=== PATIENT | male | born 1975 | race Caucasian/White ===

== ENCOUNTER 2023-10-18 01:12 | Emergency (ER) | payer OTHER, SELFPAY ==
[2023-10-18 01:22] VITALS: BP 134/80
[2023-10-18 03:00] VITALS: BMI 24.8
[2023-10-18 03:06] VITALS: BP 137/92
--- NOTE | 2023-10-18 03:09 | ED.GENMED ---
History of Present Illness
General
Chief Complaint: Flank Pain
Source: patient
Exam Limitations: none
Time Seen by Provider: 10/18/23 03:01
Nursing documentation reviewed up to this point in time: agreed with
Travel History
Have you had any contact with someone who has COVID-19?: No
Do you have any symptoms of coronavirus? Fever > 100 degrees, chills, cough, shortness of breath, sore throat, loss of taste or smell, muscle aches, or headache?: No
History of Present Illness
History of Present Illness:
Pleasant 47-year-old male who presents with left flank pain. This has been going on for the last few days. Was seen at urgent care and started on doxycycline. When cultures came back urgent care called him and switch him to nitrofurantoin. He
states that this pain is similar to previous kidney stone. He denies any current flank pain. Reports no fever, chills, nausea or vomiting. Patient was also taking Pyridium which made his urine orange but did help with the pain.
Phy Exam
General Physical Exam
General Presentation: moderate distress and mild distress
General age: appears stated age
General Skin: warm and dry
General Habitus: normal
General Mental: alert
General Hydration: appears well hydrated
ENT Exam
ENT Exam: EOMI, pharynx normal, neck supple and normocephalic
Eye Exam
Eye Exam: PERRL, cornea clear and conjunctiva normal
Cardiovascular Exam
Cardiovascular Exam: regular rate/rhythm, no edema, no murmur and normal peripheral pulses
Pulmonary Exam
Pulmonary Exam: lungs clear, no respiratory distress, no rales, no crackles, no rhonchi, no stridor, no wheezing and no cough
Gastrointestinal Exam
Gastrointestinal Exam: normal bowel sounds, non tender, soft, no organomegaly, no pulsatile mass and non distended
Neurological Exam
Neurological Exam: alert, oriented x3, no motor deficits and speech normal
Musculoskeletal Exam
Musculoskeletal Exam: full ROM and no edema
Skin Exam
Skin Exam: normal color, warm/dry, no rash and no petechia
Psychiatric Exam
Psychiatric Exam: normal mood/affect
Course
Orders/Labs/Results
Orders:
Orders
10/18/23 02:59
CMP [Comprehensive Metabolic Panel] Urgent
Complete Blood Count/With Diff Urgent
Urinalysis Reflex To Culture Urgent
Date Specimen was Collected: 10/18/23
Time Specimen was Collected: 02:52
Urine Microscopic Reflex Cult Urgent
Urine Culture Urgent
EMELIA Source: U
Specimen Description:
Date Specimen was Collected: 10/18/23
Time Specimen was Collected: 02:52
10/18/23 03:02
CT Abd/pel Without Iv Or Oral Urgent
Comment:
Reason For Exam: left flank pain
10/18/23 03:08
Morphine Sulfate 4 mg IV NOW STA
Ondansetron Injectable [Zofran] 4 mg IV NOW STA
10/18/23 05:00
0.9% Sodium Chloride 1000 ml [Nss] 1,000 ml IV BOLUS
Fosfomycin [Monurol] 3 gm PO ONCE ONE
Ketorolac [Toradol] 30 mg IV NOW STA
10/18/23 05:07
Tamsulosin [Flomax] 0.4 mg PO NOW STA
Abnormal Lab Results
10/18/23
02:59
MCH 31.7 H pg
(27.0-31.0)
Absolute Lymphs (auto) 1.0 L 10^3/uL
(1.2-3.4)
Absolute Monos (auto) 0.8 H 10^3/uL
(0.1-0.6)
Lymphocytes % 16.7 L %
(20.5-51.1)
Monocytes % 13.5 H %
(1.7-9.3)
Glucose 126 H mg/dl
(70-99)
Urine Ketones 2+ A
(Negative)
Ur Occult Blood Reflex 1+ A
(Negative)
Urine Nitrite (Reflex) Positive A
(Negative)
Urine Bilirubin 3+ A
(Negative)
Urine Urobilinogen 3+ A
(Neg - 1+)
Urine RBC 7-10 A /HPF
(0-2)
Urine Bacteria (Reflex) Few A
(Negative)
Urine Albumin (Reflex) 1+ A
(Neg - Trace)
10/18/23 02:59
10/18/23 02:59
Vital Signs
Initial and Last Documented VS:
Initial Vital Signs
Temp Pulse Resp BP Pulse Ox
97.4 F 72 24 134/80 98
10/18/23 01:22 10/18/23 01:22 10/18/23 01:22 10/18/23 01:22 10/18/23 01:22
Last Documented Vital Signs
Temp Pulse Resp BP Pulse Ox
98.8 F 69 16 137/92 95
10/18/23 03:06 10/18/23 03:06 10/18/23 03:06 10/18/23 03:06 10/18/23 03:06
*Critical Care Note
Total Time (30-74mins, 75-104mins- exclusive of procedures): Not Applicable
Update Note
Update Note:
CT ABDOMEN/PELVIS WITHOUT CONTRAST
IMPRESSION:
1. 5 mm stone at the left UVJ resulting in mild left hydroureteronephrosis
2. No bowel obstruction. Normal gallbladder and appendix.
Incidentals:
-Moderate stool burden
- No hepatic or pancreatic mass.
- No abdominal aortic aneurysm.
- No acute osseous abnormality.
- No acute abnormality within the visualized lungs.
- No acute abnormality within the visualized soft tissues.
ED Attending Note
-
Portions of this chart may have been created with voice recognition software.� Occasional wrong word or��sound alike� substitutions may have occurred due to the inherent limitations of voice recognition software.
Discharge Plan
Departure
Patient Disposition: Home (Routine Discharge)
Date of Disposition: 10/18/23
Time of Disposition: 06:05
Patient with high blood pressure during this ER visit?: Yes
Condition: Good
Discharge Problem:
Kidney stone on left side
Instructions: Kidney Stones (DC), How to Strain Your Urine, BLOOD PRESSURE, Narcotic Pain Medication
Prescriptions:
New
tamsulosin [Flomax] 0.4 mg capsule
0.4 mg PO DAILY Qty: 7 0RF
oxycodone-acetaminophen [Percocet] 5-325 mg tablet
1 tab PO Q6HPRN PRN (Reason: pain) Qty: 7 0RF
diclofenac sodium 75 mg tablet,delayed release (DR/EC)
75 mg PO BID Qty: 10 0RF
Referrals:
[facility] [Outside]
Suman Carpenter MD [Active] - Call in 1-3 days for appt
NONE,* [Family Provider] -
Activity Restrictions/Additional Instructions:
Your prescriptions were sent to the pharmacy you specified
It was a pleasure meeting you and taking part in your care. We hope for your continued healing and wellness.
Please read discharge instructions in their entirety. However, they are for general education and may not describe your exact diagnosis at discharge. Information on your ER visit and medical conditions were discussed with you along with appropriate
follow up information...
If indicated, please take your medications as instructed and indicated on discharge paperwork.
Please schedule a follow up appointment as directed. Call to schedule an appointment
Please return to the emergency department with ANY change in, persisting, or worsening of symptoms. If any of your symptoms do not improve, or persist, or become more severe within 6-12 hours, please return to the emergency department for further
care.
Please return to the emergency department if you develop a headache, neck pain/stiffness, fever greater than 100.4F, chest pain, shortness of breath, persistent nausea, vomiting, slurred speech, difficulty walking, numbness/tingling, weakness, signs
of infection or any other symptoms that are worrisome to you.
If you have any questions or concerns please do not hesitate to call the Hospital at or E-mail me directly at [email or web address]
Interventions
Interventions:
*Risk Screen - Suicide Last Done: 10/18/23 01:22
*General Assessment Last Done: 10/18/23 03:00
*Neglect/Abuse Screening Last Done: 10/18/23 01:22
ED- Fall Risk Assessment Last Done: 10/18/23 03:00
*ED COVID-19 Vaccine History Last Done: 10/18/23 06:58
*Nursing Disposition Last Done: 10/18/23 06:58
HM-Auibds-Ngkjpztycc Assessment Last Done: 10/18/23 03:00
ED-Male Genitourinary Assessment Last Done: 10/18/23 03:00
Discharge Date and Time
Discharge Date/Time: 10/18/23 06:59
[2023-10-18 03:14] LABS: % Basophils 0.6 % (0-2); % Eosinophils 0.3 % (0-6); % Immature Granulocytes 0.3 % (0-0.5); % Lymphocytes 16.7 % (20.5-51.1); % Monocytes 13.5 % (1.7-9.3); % Neutrophils 68.6 % (42.2-75.2); Absolute Monocytes 0.8 10^3/uL (0.1-0.6); Absolute Neutrophils 4.3 10^3/uL (1.4-6.5); Hemoglobin 15.2 g/dL (13.0-18.0); Mean Corp Hgb Conc. 35.3 g/dL (33.0-37.0); Mean Corpuscular Hgb 31.7 pg (27.0-31.0); Mean Corpuscular Volume 89.8 fL (80.0-94.0); Mean Platelet Volume 9.4 fL (7.4-10.4); Nucleated Red Blood Cells % 0 % (-); Platelet Count 214 10^3/uL (130-400); Red Blood Cell Count 4.79 10^6/uL (4.70-6.10); Red Cell Dist. Width 12.3 % (11.5-14.5); White Blood Cell Count 6.2 10^3/uL (4.8-10.8)
[2023-10-18 03:16] LABS: Urine Albumin 1+ (Neg - Trace); Urine Bilirubin 3+ (Negative); Urine Character Clear (Clear); Urine Glucose Negative (Negative); Urine Ketone 2+ (Negative); Urine Leukocyte Negative (Negative); Urine Nitrite Positive (Negative); Urine Occult Blood 1+ (Negative); Urine Specific Gravity 1.025 (<1.030); Urine Urobilinogen 3+ (Neg - 1+)
[2023-10-18 03:20] LABS: Urine Color Orange
[2023-10-18] MEDS: ZOFRAN 4 MG IV (03:26)
[2023-10-18] MEDS: MORPHINE SULFATE 4 MG IV (03:26)
[2023-10-18 03:30] LABS: ALT (SGPT) 34 U/L (0-50); AST (SGOT) 32 U/L (17-59); Albumin 4.5 g/dl (3.5-5.0); Alkaline Phosphatase 73 U/L (38-126); Blood Urea Nitrogen 16 mg/dl (9-20); Calcium 10.1 mg/dl (8.4-10.2); Carbon Dioxide 24 mmol/L (22-30); Chloride 101 mmol/L (98-107); Estimated Creatinine Clearance 100 ml/min; Glucose 126 mg/dl (70-99); Potassium 3.7 mmol/L (3.5-5.1); Sodium 136 mmol/L (135-145); Total Bilirubin 0.5 mg/dl (0.2-1.3); Total Protein 7.4 g/dl (6.3-8.2); eGFR > 60.00
[2023-10-18 03:45] LABS: Urine Squamous Cell 0-2 /LPF (Few)
[2023-10-18 03:46] LABS: Urine Bacteria Few (Negative)
[2023-10-18] MEDS: MONUROL 3 GM PO (05:09)
[2023-10-18] MEDS: TORADOL 30 MG IV (05:10)
[2023-10-18] MEDS: NSS 1000 IV (05:10)
[2023-10-18] MEDS: FLOMAX 0.400000000000000022 MG PO (05:10)
== END 2023-10-18 06:59 | disposition home or self-care (01) ==
LOC: EMR 01:12
PROVIDERS: EMERGENCY PHYSICIAN Student in an Organized Health Care Education/Training Program
DX: N13.2 Hydronephrosis with renal and ureteral calculous obstruction (principal); R03.0 Elevated blood-pressure reading, without diagnosis of hypertension; N39.0 Urinary tract infection, site not specified; Z87.442 Personal history of urinary calculi; Z86.16 Personal history of COVID-19
CPT/HCPCS: 99284; 96374; 96375 ×2; 96361; 74176; 80053; 81003; 81015; 85025; 87086

== ENCOUNTER 2023-10-19 04:01 | Emergency (ER) | payer OTHER, SELFPAY ==
[2023-10-19 04:05] VITALS: BP 152/120
[2023-10-19 04:49] VITALS: BP 142/105
[2023-10-19] MEDS: ZOFRAN 4 MG IV (04:57)
[2023-10-19] MEDS: TORADOL 30 MG IV (05:00)
[2023-10-19] MEDS: MORPHINE SULFATE 4 MG IV (05:03)
[2023-10-19] MEDS: NSS 500 IV (05:16)
[2023-10-19] MEDS: DILAUDID 1 MG IV (05:21)
[2023-10-19 05:34] VITALS: BP 155/79
[2023-10-19 05:36] LABS: % Basophils 0.3 % (0-2); % Immature Granulocytes 0.6 % (0-0.5); % Lymphocytes 12.4 % (20.5-51.1); % Neutrophils 73.7 % (42.2-75.2); Absolute Lymphocytes 0.9 10^3/uL (1.2-3.4); Absolute Monocytes 0.9 10^3/uL (0.1-0.6); Absolute Neutrophils 5.3 10^3/uL (1.4-6.5); Hematocrit 39.3 % (39.0-52.0); Hemoglobin 14.1 g/dL (13.0-18.0); Mean Corp Hgb Conc. 35.9 g/dL (33.0-37.0); Mean Corpuscular Volume 89.1 fL (80.0-94.0); Mean Platelet Volume 10.3 fL (7.4-10.4); Nucleated Red Blood Cells % 0 % (-); Platelet Count 203 10^3/uL (130-400); Red Blood Cell Count 4.41 10^6/uL (4.70-6.10); Red Cell Dist. Width 12.2 % (11.5-14.5); White Blood Cell Count 7.2 10^3/uL (4.8-10.8)
[2023-10-19 06:01] LABS: Blood Urea Nitrogen 17 mg/dl (9-20); Calcium 9.6 mg/dl (8.4-10.2); Carbon Dioxide 23 mmol/L (22-30); Chloride 99 mmol/L (98-107); Glucose 132 mg/dl (70-99); Potassium 3.7 mmol/L (3.5-5.1); Sodium 136 mmol/L (135-145); eGFR > 60.00
--- NOTE | 2023-10-19 06:07 | ED.GENMED ---
History of Present Illness
<Familia Correa MD - Last Filed: 10/19/23 06:25>
General
Chief Complaint: Flank Pain
Source: patient
Exam Limitations: none
Time Seen by Provider: 10/19/23 05:09
Nursing documentation reviewed up to this point in time: agreed with
Travel History
Have you had any contact with someone who has COVID-19?: No
Do you have any symptoms of coronavirus? Fever > 100 degrees, chills, cough, shortness of breath, sore throat, loss of taste or smell, muscle aches, or headache?: No
History of Present Illness
History of Present Illness:
Patient diagnosed with kidney stones yesterday on CT scan, presents to ED secondary to worsening flank/back pain with nausea sensation despite taking medications at home. Denies fever or chills. Denies difficulty with urination. Denies vomiting.
Denies dizziness. Denies abdominal pain.
Review of Systems
<Familia Correa MD - Last Filed: 10/19/23 06:25>
Review of Systems
Allergies reviewed?: Yes
All Other Systems: ROS reviewed and negative except as documented in HPI and ROS
Constitutional: Reports no symptoms
EENT: Reports no symptoms
Respiratory: Reports no symptoms
Cardiac: Reports no symptoms
ABD/GI: Reports nausea; Denies vomiting
: Reports flank pain; Denies difficulty voiding
Musculoskeletal: Reports no symptoms
Skin: Reports no symptoms
Neurological: Reports no symptoms
Phy Exam
<Familia Correa MD - Last Filed: 10/19/23 06:25>
Physical Exam
Physical Exam:
Physical Exam
General: moderate painful distress, not acutely ill. afebrile
Head: nc/at. eomi
Neck: supple. no meningeal signs.
Abdomen: normal bowel sounds. not tender.
Neuro: alert and oriented. no focal neurological deficits
Skin: no rash
Psychiatric: well kept. interactive and cooperative
Extremities: no edema. no calf tenderness.
Course
<Familia Correa MD - Last Filed: 10/19/23 06:25>
Orders/Labs/Results
Orders:
Orders
10/19/23 04:54
Ketorolac [Toradol] 30 mg .ROUTE .STK-MED ONE
Morphine Sulfate 4 mg .ROUTE .STK-MED ONE
Ondansetron Injectable [Zofran] 4 mg .ROUTE .STK-MED ONE
10/19/23 04:56
Ondansetron Injectable [Zofran] 4 mg IV NOW STA
10/19/23 04:59
Ketorolac [Toradol] 30 mg IV NOW STA
10/19/23 05:03
Morphine Sulfate 4 mg IV NOW STA
10/19/23 05:09
0.9% Sodium Chloride 500 ml [Nss] 500 ml IV BOLUS
HYDROmorphone [Dilaudid] 1 mg IV NOW STA
10/19/23 05:24
Basic Metabolic Panel Urgent
Complete Blood Count/With Diff Urgent
10/19/23 06:23
UROLOGY CONSULT Urgent
Consulting Provider: Keyon Saravia
Was physician already notified: Yes
Comment: renal colic
10/19/23 07:38
0.9% Sodium Chloride 1000 ml [Nss] 1,000 ml IV BOLUS
10/19/23 07:55
HYDROmorphone [Dilaudid] 0.5 mg IV NOW STA
Abnormal Lab Results
10/19/23
05:24
RBC 4.41 L 10^6/uL
(4.70-6.10)
MCH 32.0 H pg
(27.0-31.0)
Absolute Lymphs (auto) 0.9 L 10^3/uL
(1.2-3.4)
Absolute Monos (auto) 0.9 H 10^3/uL
(0.1-0.6)
Immature Gran % 0.6 H %
(0-0.5)
Lymphocytes % 12.4 L %
(20.5-51.1)
Monocytes % 13.0 H %
(1.7-9.3)
Glucose 132 H mg/dl
(70-99)
10/19/23 05:24
10/19/23 05:24
Vital Signs
Initial and Last Documented VS:
Initial Vital Signs
Pulse Resp BP Pulse Ox
56 28 152/120 98
10/19/23 04:05 10/19/23 04:05 10/19/23 04:05 10/19/23 04:05
Last Documented Vital Signs
Temp Pulse Resp BP Pulse Ox
98.7 F 60 15 114/64 94
10/19/23 06:00 10/19/23 08:07 10/19/23 08:07 10/19/23 08:07 10/19/23 07:15
<Yo Villavicencio, DO - Last Filed: 10/19/23 09:42>
Orders/Labs/Results
Orders:
Orders
10/19/23 04:54
Ketorolac [Toradol] 30 mg .ROUTE .STK-MED ONE
Morphine Sulfate 4 mg .ROUTE .STK-MED ONE
Ondansetron Injectable [Zofran] 4 mg .ROUTE .STK-MED ONE
10/19/23 04:56
Ondansetron Injectable [Zofran] 4 mg IV NOW STA
10/19/23 04:59
Ketorolac [Toradol] 30 mg IV NOW STA
10/19/23 05:03
Morphine Sulfate 4 mg IV NOW STA
10/19/23 05:09
0.9% Sodium Chloride 500 ml [Nss] 500 ml IV BOLUS
HYDROmorphone [Dilaudid] 1 mg IV NOW STA
10/19/23 05:24
Basic Metabolic Panel Urgent
Complete Blood Count/With Diff Urgent
10/19/23 06:23
UROLOGY CONSULT Urgent
Consulting Provider: Keyon Saravia
Was physician already notified: Yes
Comment: renal colic
10/19/23 07:38
0.9% Sodium Chloride 1000 ml [Nss] 1,000 ml IV BOLUS
10/19/23 07:55
HYDROmorphone [Dilaudid] 0.5 mg IV NOW STA
Abnormal Lab Results
10/19/23
05:24
RBC 4.41 L 10^6/uL
(4.70-6.10)
MCH 32.0 H pg
(27.0-31.0)
Absolute Lymphs (auto) 0.9 L 10^3/uL
(1.2-3.4)
Absolute Monos (auto) 0.9 H 10^3/uL
(0.1-0.6)
Immature Gran % 0.6 H %
(0-0.5)
Lymphocytes % 12.4 L %
(20.5-51.1)
Monocytes % 13.0 H %
(1.7-9.3)
Glucose 132 H mg/dl
(70-99)
10/19/23 05:24
10/19/23 05:24
Vital Signs
Initial and Last Documented VS:
Initial Vital Signs
Pulse Resp BP Pulse Ox
56 28 152/120 98
10/19/23 04:05 10/19/23 04:05 10/19/23 04:05 10/19/23 04:05
Last Documented Vital Signs
Temp Pulse Resp BP Pulse Ox
98.7 F 60 15 114/64 94
10/19/23 06:00 10/19/23 08:07 10/19/23 08:07 10/19/23 08:07 10/19/23 07:15
<Familia Correa MD - Last Filed: 10/19/23 06:25>
MDM/Problems Addressed
MDM/Problems Addressed:
Pt with persistent pain despite treatment.
Discussed with (urology) who will come and evaluate patient in ED.
<Yo Villavicencio DO - Last Filed: 10/19/23 09:42>
*Critical Care Note
Total Time (30-74mins, 75-104mins- exclusive of procedures): Not Applicable
<Yo Villavicencio DO - Last Filed: 10/19/23 09:42>
Update Note
Update Note:
Patient feels improved, stable for discharge. Will follow-up with Dr. Saravia.
ED Attending Note
<Familia Correa MD - Last Filed: 10/19/23 06:25>
-
Portions of this chart may have been created with voice recognition software.� Occasional wrong word or��sound alike� substitutions may have occurred due to the inherent limitations of voice recognition software.
Discharge Plan
Departure
Patient Disposition: Home (Routine Discharge)
Date of Disposition: 10/19/23
Time of Disposition: 09:33
Patient with high blood pressure during this ER visit?: No
Condition: Good
Discharge Problem:
Calculus of distal left ureter
Instructions: Kidney Stones (DC), How to Strain Your Urine
Prescriptions:
No Action
tamsulosin [Flomax] 0.4 mg capsule
0.4 mg PO DAILY Qty: 7 0RF
diclofenac sodium 75 mg tablet,delayed release (DR/EC)
75 mg PO BID Qty: 10 0RF
oxycodone-acetaminophen 5-325 mg Tablet
0.5 tab PO Q6HPRN PRN (Reason: mild pain)
phenazopyridine 100 mg Tablet
100 mg PO TID
Patient Comments:
10/19/2023, pt. filled this med. on 10/17/2023 and is instructed to take one tablet TID for 2 days.
ibuprofen 200 mg Tablet
200 mg PO Q3HPRN PRN (Reason: mild pain)
ibuprofen 200 mg Tablet
400 mg PO Q3HPRN PRN (Reason: severe pain)
oxycodone-acetaminophen [Percocet] 5-325 mg tablet
1 tab PO Q6HPRN PRN (Reason: severe pain)
Patient Comments:
10/18/2023, no records in PDMP.
Referrals:
Keyon Saravia MD [Active] - Call in 1-3 days for appt
NONE,* [Family Provider] -
Interventions
Interventions:
*Risk Screen - Suicide Last Done: 10/19/23 04:05
*General Assessment Last Done: 10/19/23 05:00
*Neglect/Abuse Screening Last Done: 10/19/23 04:05
ED- Fall Risk Assessment Last Done: 10/19/23 05:00
*ED COVID-19 Vaccine History Last Done: 10/19/23 05:00
RF-Ehyihi-Zkqjkaljpp Assessment Last Done: 10/19/23 05:00
ED-Male Genitourinary Assessment Last Done: 10/19/23 05:00
[2023-10-19 07:13] VITALS: BP 102/63
[2023-10-19] MEDS: NSS 1000 IV (07:45)
[2023-10-19 08:07] VITALS: BP 114/64
--- NOTE | 2023-10-19 09:40 | PHANOTE ---
10/19/2023, med rec tech, spoke to pt. to obtain their med. history; per pt., he is not taking his antibiotics at this time; he filled Nitrofurantoin Monohydrate/Macrocrystals 100 mg caps on 10/17/2023 BID for 5 days and Doxycycline Hyclate 100 mg
tabs on 10/15/2023 BID for 7 days.
--- NOTE | 2023-10-19 13:48 | CONS.URO ---
Consultation
-
Date/Time Consultation Requested: 10/18 599
Date/Time Consultation Performed: [id number]
Requesting Provider: sisi martinez
Performing Provider: phil
Reason for Consultation: left coloic
Medical History
History of Present Illness
1 day asever left colic no fever pos nausea had pain 2 weeks ago and againyesterday
Past Medical History
Past Medical History: Other
Past Surgical History: None
Social History
Tobacco: Non-smoker
Alcohol: None
Drug: None
Personal:
Living: With Family
Employment: Employed
Family History
Family History: Reviewed & Not Pertinent
Allergies/Home Medications
Allergies
Allergy/AdvReac Type Severity Reaction Status Date / Time
No Known Allergies Allergy Verified 10/19/23 04:06
Home Medications
Medication Instructions Recorded Confirmed Type
diclofenac sodium 75 mg 75 mg PO BID #10 tabs 10/18/23 10/19/23 Rx
tablet,delayed release
tamsulosin 0.4 mg capsule (Flomax) 0.4 mg PO DAILY #7 caps 10/18/23 10/19/23 Rx
ibuprofen 200 mg tablet 200 mg PO Q3HPRN PRN mild pain 10/19/23 10/19/23 History
ibuprofen 200 mg tablet 400 mg PO Q3HPRN PRN severe pain 10/19/23 10/19/23 History
oxycodone-acetaminophen 5 mg-325 0.5 tab PO Q6HPRN PRN mild pain 10/19/23 10/19/23 History
mg tablet
oxycodone-acetaminophen 5 mg-325 1 tab PO Q6HPRN PRN severe pain 10/19/23 10/19/23 History
mg tablet (Percocet)
phenazopyridine 100 mg tablet 100 mg PO TID 10/19/23 10/19/23 History
Review of Systems
-
Abdomen/GI: Reports Nausea and Vomiting
: Reports Flank Pain
Physical Exam
Vital Signs
Vital Signs
Temp Pulse Resp BP Pulse Ox
98.7 F 60 15 114/64 94
10/19/23 06:00 10/19/23 08:07 10/19/23 08:07 10/19/23 08:07 10/19/23 07:15
Lab / Testing Results
Laboratory Results
10/19/23 05:24
10/19/23 05:24
Physical Exam
General: Well Developed
HEENT: Normocephalic
Respiratory: Clear
Cardiac: S1/S2
GI: Non Tender
Genito-urinary: Costovertebral Angle Tend
Assessment / Plan
-
pasable 5x3 mm distarl left uretral stone pt comfortable idid now want surgery at this tome doscussed oprios will go home and return if pain too grat or vferver chills feels wel
Data Reviewed
-
Total Time Spent with Patient (in minutes): 45 minutes
Diagnostic Radiology: Image personally visualized and interpreted and Discussed with Patient
CT Scan: Image personally visualized and interpreted
Lab Data: Labs Reviewed
== END 2023-10-19 10:00 | disposition home or self-care (01) ==
LOC: EMR 04:01
PROVIDERS: Emergency Medicine; CONSULT PHYSICIAN Specialist; EMERGENCY PHYSICIAN Emergency Medicine
DX: N20.2 Calculus of kidney with calculus of ureter (principal)
CPT/HCPCS: 99284; 96374; 96375 ×3; 96361; 80048; 85025

== ENCOUNTER 2023-10-20 16:34 | Observation (INO) | payer OTHER, SELFPAY ==
[2023-10-20 12:52] VITALS: BP 130/92
--- NOTE | 2023-10-20 13:23 | ED.GENMED ---
History of Present Illness
General
Chief Complaint: Flank Pain
Source: patient
Exam Limitations: none
Time Seen by Provider: 10/20/23 13:06
Nursing documentation reviewed up to this point in time: agreed with
Travel History
Have you had any contact with someone who has COVID-19?: No
Do you have any symptoms of coronavirus? Fever > 100 degrees, chills, cough, shortness of breath, sore throat, loss of taste or smell, muscle aches, or headache?: No
History of Present Illness
History of Present Illness:
47 y/o M
here for 3rd visit for L flank pain with known kidney stone
had imaginag 3x5 mm distal L uvj stone on ct
had consult with urology yseterday after returning fbecause pain was not controlled
dr. villarreal saw him and offered him surgery but pt declined
he was given pain meds, flomax, pyridium, oxycodone, motrin and has been taking some doses of oxy but says it does'nt work
he is here writhing in pain and difficult to examine
he has no jesus any fever, dysuria, vomiting,
Past History
Past History
ED Past Medical History: Other (kidney stone)
Social History
Tobacco: Non-smoker
Alcohol: None
Drug: None
Personal: Single
Living: alone
Review of Systems
Review of Systems
Allergies reviewed?: Yes
All Other Systems: Not applicable
Phy Exam
Physical Exam
Physical Exam:
GENERAL: Alert, uncomfortable
Neck: supple
CARDIAC: Regular rate and rhythm .
LUNGS: Clear breath sounds bilaterally, no acute respiratory distress, no wheezes/rales/rhonchi
ABDOMEN: Soft, normal bowel sounds, nondistended, nontender, no guarding, no rebound, neg charles's
NEUROLOGICAL: Alert and oriented, no focal neuro deficits
SKIN: Warm and dry, skin intact.
PSYCH: Normal and appropriate interaction.
Course
Orders/Labs/Results
Orders:
Orders
10/20/23 Lunch
Regular
At Your Request: Full Participation
10/20/23 13:23
0.9% Sodium Chloride 1000 ml [Nss] 1,000 ml IV BOLUS
HYDROmorphone [Dilaudid] 1 mg IV NOW STA
10/20/23 13:41
Complete Blood Count/With Diff Urgent
Comprehensive Metabolic Panel Urgent
10/20/23 13:56
Ketorolac [Toradol] 15 mg IV NOW STA
10/20/23 15:22
0.9% Sodium Chloride 1000 ml [Nss] 1,000 ml IV BOLUS
10/20/23 15:46
Urinalysis Reflex To Culture Urgent
Date Specimen was Collected: 10/20/23
Time Specimen was Collected: 15:25
Urine Microscopic Reflex Cult Urgent
10/20/23 15:57
Admit Patient As Directed
Co-Sign Provider:
Level of Care: Observation services
Assign to:: Medical/Surgical
Physician / Group: Bulmaro
Diagnosis: UVJ stone w/ intractable renal colic
Patient Condition: Good
Expected length of stay greater than two midnights?: No
ELOS- Estimated Length of Stay in days: 1
I certify the patient meets the requirements for IP care: Yes
DVT Contraindication [VTE Contraindication] Routine
VTE Mechanical Device Contraindication: Low Risk- LOS < 2 days
Pharmocologic Contraindication: Low Risk- LOS < 2 days
Risk assessment completed and pt is low risk: Yes
10/20/23 15:58
Activity As Directed
Activity Level: Out of Bed- Ad Racheal
Strain Urine As Directed
10/20/23 15:59
Oxycodone/Acetaminophen [Percocet 5/325] 1 tablet PO Q6HPRN PRN
10/20/23 16:00
Tamsulosin [Flomax] 0.4 mg PO DAILY
Tramadol HCl [Ultram] 50 mg PO Q6HPRN PRN
10/20/23 16:01
HYDROmorphone [Dilaudid] 0.5 mg IV Q4HPRN PRN
10/20/23 16:15
0.9% Sodium Chloride 1000 ml [Nss] 1,000 ml IV 75 mls/hr
10/20/23 16:27
HYDROmorphone [Dilaudid] 1 mg .ROUTE .STK-MED ONE
10/20/23 16:30
HYDROmorphone [Dilaudid] 1 mg IV NOW STA
10/20/23 20:00
Ibuprofen [Motrin] 800 mg PO Q8HPRN PRN
10/21/23 Breakfast
NPO
Allow oral meds: Yes
Allow clear liquids: No
NPO with Ice Chips: No
Basic Metabolic Panel IN AM
Complete Blood Count/With Diff IN AM
10/21/23 16:28
CeFAZolin 2 GRAM [Ancef] 2 grams in 10 ml IV PRE PROCEDURE
Abnormal Lab Results
10/20/23 10/20/23
13:41 15:46
WBC 4.3 L 10^3/uL
(4.8-10.8)
RBC 4.60 L 10^6/uL
(4.70-6.10)
MCH 32.0 H pg
(27.0-31.0)
Absolute Monos (auto) 0.7 H 10^3/uL
(0.1-0.6)
Monocytes % 15.4 H %
(1.7-9.3)
Potassium 3.4 L mmol/L
(3.5-5.1)
Calcium 8.3 L mg/dl
(8.4-10.2)
Total Protein 6.1 L g/dl
(6.3-8.2)
Urine Ketones 2+ A
(Negative)
Ur Occult Blood Reflex 2+ A
(Negative)
Urine RBC 11-15 A /HPF
(0-2)
Urine Albumin (Reflex) 2+ A
(Neg - Trace)
10/20/23 13:41
10/20/23 13:41
Vital Signs
Initial and Last Documented VS:
Initial Vital Signs
Temp Pulse Resp BP Pulse Ox
98.7 F 123 18 130/92 97
10/20/23 12:52 10/20/23 12:52 10/20/23 12:52 10/20/23 12:52 10/20/23 12:52
Last Documented Vital Signs
Temp Pulse Resp BP Pulse Ox
98.2 F 62 16 133/74 97
10/20/23 16:00 10/20/23 16:00 10/20/23 16:00 10/20/23 16:00 10/20/23 16:00
MDM/Problems Addressed
Differential Diagnosis Includes:
kidney stone, intractable pain
MDM/Problems Addressed:
47 y/o M with known distal kidney stone
here for ED visit #3 for pain not controlled
does not sound as if he has been totally compliant with takin gmeds becuase he doesn't think they work
he is tachy and yelling becuase of pain intermittently
he has no change to his cr
nontender exam
did not feel imaging necessary
spoke with dr troy from urology who will admit for pain control and stent placement tomorrow.
*Critical Care Note
Total Time (30-74mins, 75-104mins- exclusive of procedures): Not Applicable
ED Attending Note
-
Portions of this chart may have been created with voice recognition software.� Occasional wrong word or��sound alike� substitutions may have occurred due to the inherent limitations of voice recognition software.
Discharge Plan
Departure
Patient Disposition: Admit
Date of Disposition: 10/20/23
Time of Disposition: 15:21
Admit to: Med/Surg
Admit to doctor: BULMARO
Presentation/result/management discussed w/ accepting MD/DO: BULMARO
Patient with high blood pressure during this ER visit?: No
Condition: Fair
Covid-19: Not Applicable
Discharge Problem:
Ureterolithiasis
Interventions
Interventions:
*Risk Screen - Suicide Last Done: 10/20/23 13:12
*General Assessment Last Done: 10/20/23 13:12
*Neglect/Abuse Screening Last Done: 10/20/23 13:12
*ED COVID-19 Vaccine History Last Done: 10/20/23 13:12
BA-Hcsibn-Yyskpykweg Assessment Last Done: 10/20/23 13:11
ED-Male Genitourinary Assessment Last Done: 10/20/23 13:11
[2023-10-20] MEDS: DILAUDID 1 MG IV ×3 (13:36→19:44)
[2023-10-20] MEDS: NSS 1000 IV ×3 (13:40→19:44)
[2023-10-20 13:54] LABS: % Basophils 0.7 % (0-2); % Eosinophils 0.2 % (0-6); % Immature Granulocytes 0.2 % (0-0.5); % Lymphocytes 34.1 % (20.5-51.1); % Monocytes 15.4 % (1.7-9.3); % Neutrophils 49.4 % (42.2-75.2); Absolute Lymphocytes 1.5 10^3/uL (1.2-3.4); Absolute Monocytes 0.7 10^3/uL (0.1-0.6); Absolute Neutrophils 2.1 10^3/uL (1.4-6.5); Hematocrit 42.4 % (39.0-52.0); Hemoglobin 14.7 g/dL (13.0-18.0); Mean Corp Hgb Conc. 34.7 g/dL (33.0-37.0); Mean Corpuscular Volume 92.2 fL (80.0-94.0); Mean Platelet Volume 9.9 fL (7.4-10.4); Nucleated Red Blood Cells % 0 % (-); Platelet Count 210 10^3/uL (130-400); Red Cell Dist. Width 12.2 % (11.5-14.5); White Blood Cell Count 4.3 10^3/uL (4.8-10.8)
[2023-10-20] MEDS: TORADOL 15 MG IV (14:00)
[2023-10-20 14:09] LABS: ALT (SGPT) 21 U/L (0-50); AST (SGOT) 27 U/L (17-59); Albumin 3.7 g/dl (3.5-5.0); Alkaline Phosphatase 56 U/L (38-126); Blood Urea Nitrogen 13 mg/dl (9-20); Calcium 8.3 mg/dl (8.4-10.2); Carbon Dioxide 25 mmol/L (22-30); Chloride 105 mmol/L (98-107); Glucose 95 mg/dl (70-99); Potassium 3.4 mmol/L (3.5-5.1); Sodium 141 mmol/L (135-145); Total Bilirubin 0.4 mg/dl (0.2-1.3); Total Protein 6.1 g/dl (6.3-8.2); eGFR > 60.00
[2023-10-20 15:57] LABS: Urine Albumin 2+ (Neg - Trace); Urine Bilirubin Negative (Negative); Urine Character Clear (Clear); Urine Color Yellow; Urine Glucose Negative (Negative); Urine Ketone 2+ (Negative); Urine Leukocyte Negative (Negative); Urine Nitrite Negative (Negative); Urine Occult Blood 2+ (Negative); Urine Urobilinogen Negative (Neg - 1+)
[2023-10-20 16:00] VITALS: BP 133/74
[2023-10-20 16:05] LABS: Urine Mucus Few; Urine White Cell 0-2 /HPF (0-5)
--- NOTE | 2023-10-20 16:24 | W.PN.UPDATE ---
Update Note
Progress Note Update
47M w/ intractable left abdominal and pelvic pain secondary to known obstructing left UVJ stone.
ER visits x3 - most recent visit today for intractable pain poorly controlled at home on analgesics.
Denies F/C.
Notes N/V.
Voiding w/o difficulty.
WBC wnl
Cr wnl
UA +RBCs
10/18/23: CTAP w/o IV contrast => mild left hydronephrosis secondary to 5x3 mm left UVJ stone.
Exam: visibly uncomfortable in position w/ intermittent left renal colic.
A/P:
Intractable left renal colic
Obstructing left UVJ stone
- Admit to Urology for obs
- Strain urine
- PO/IV analgesics
- NPO@[place]
- To OR tomorrow for left URS/LL/stone extraction/stent placement
- Consent signed/scanned into chart
Detailed discussion including SDM had w/ patient regarding his urologic condition.
Reviewed risks, benefits, alternatives, and potential complications of URS/LL/stone extraction/stent placement including but no limited to urosepsis, bleeding, ureteral/bladder injury, need for additional procedures.
[2023-10-20] MEDS: FLOMAX 0.400000000000000022 MG PO (16:31)
[2023-10-20 17:42] VITALS: BMI 26.8
--- NOTE | 2023-10-20 19:38 | PTCARENOTE ---
Pt received from ED via stretcher. Writhing, moaning, crying, and yelling. Pt states 'I'm dying in pain'. Pt and s/o verbalize frustration with pain control. [facility] covering house contacted, electronic orders received (refer to MAR).
[2023-10-20 20:25] VITALS: BP 138/81
[2023-10-20] MEDS: MOTRIN 800 MG PO (21:08)
[2023-10-20] MEDS: COMPAZINE 5 MG IV (22:33)
[2023-10-20 22:41] VITALS: BP 132/73
[2023-10-21] VITALS (8 sets, daily range): BP systolic 112–125; BP diastolic 70–80; BMI 24.1
--- NOTE | 2023-10-21 01:51 | PTCARENOTE ---
Pt verbalizes pain being much improved after receiving IV dilaudid and PO motrin. Complained of nausea, G[employer]ATION [employer]IST covering notified and electronic orders received (refer to MAR). Pt was able to eat and drink shortly after with no complaints. Plan of
care discussed, pt verbalizes understanding. Monitoring continues.
[2023-10-21] MEDS: ULTRAM 50 MG PO (04:10)
[2023-10-21 05:54] LABS: % Basophils 0.6 % (0-2); % Eosinophils 0.6 % (0-6); % Lymphocytes 49.9 % (20.5-51.1); % Monocytes 14.7 % (1.7-9.3); % Neutrophils 34.2 % (42.2-75.2); Absolute Lymphocytes 1.8 10^3/uL (1.2-3.4); Absolute Monocytes 0.5 10^3/uL (0.1-0.6); Absolute Neutrophils 1.2 10^3/uL (1.4-6.5); Hematocrit 34.3 % (39.0-52.0); Hemoglobin 11.9 g/dL (13.0-18.0); Mean Corp Hgb Conc. 34.7 g/dL (33.0-37.0); Mean Corpuscular Hgb 31.6 pg (27.0-31.0); Mean Corpuscular Volume 91.2 fL (80.0-94.0); Mean Platelet Volume 10.3 fL (7.4-10.4); Nucleated Red Blood Cells % 0 % (-); Platelet Count 175 10^3/uL (130-400); Red Blood Cell Count 3.76 10^6/uL (4.70-6.10); Red Cell Dist. Width 12.3 % (11.5-14.5); White Blood Cell Count 3.6 10^3/uL (4.8-10.8)
[2023-10-21 06:09] LABS: Blood Urea Nitrogen 14 mg/dl (9-20); Calcium 8.3 mg/dl (8.4-10.2); Carbon Dioxide 25 mmol/L (22-30); Chloride 106 mmol/L (98-107); Estimated Creatinine Clearance 100 ml/min; Glucose 94 mg/dl (70-99); Potassium 3.4 mmol/L (3.5-5.1); Sodium 138 mmol/L (135-145); eGFR > 60.00
--- NOTE | 2023-10-21 06:46 | PTCARENOTE ---
Pt completed first set of CHG cloths, dressed in hospital gown.
[2023-10-21] MEDS: FLOMAX 0.400000000000000022 MG PO (09:07)
[2023-10-21] MEDS: NSS 1000 IV (09:07)
--- NOTE | 2023-10-21 09:43 | W.SUR.PREOP ---
Pre-Operative Surgical Note
-
I have examined this patient prior to the performance of the scheduled procedure.
The patient's condition is unchanged from the time of the current History and
Physical and the patient is able to undergo the scheduled procedure.
No change o/n in left renal colic - continues to have left abdominal and pelvic pain requiring analgesics.
CT imaging reviewed w/ patient - 5 mm left UVJ stone at [facility].
Detailed discussion including SDM had w/ patient regarding risks, benefits, alternatives, and potential complications of URS/LL/stone extraction/stent placement.
Risks and complications include but not limited to urosepsis, bleeding, ureteral/bladder injury, need for additional procedures/surgeries.
- To OR this afternoon for left ULS (Dr. Ramirez)
- Surgical consent signed/scanned
- IV Ancef 2g communication and outreach manager to OR
--- NOTE | 2023-10-21 15:00 | PTCARENOTE ---
Pt sent to the OR via bed. Pt and Pt's family instructed on what to expect pre and post operatively. Pt and family verbalized understanding of instructions. VSS, Pt is afebrile. Verbal report given to [facility] OR team. Ancef 2gm sent to preop area.
--- NOTE | 2023-10-21 15:14 | CM ---
Initial assessment completed with patient who lives with his and 13 y/o son in a split level home with 6 steps to enter, B/B on top level and 1/2 bath on lower level, [employer] patient was independent, drove and works, DME is [facility] which is not in use,
no services. No psychiatric history. HOME WITH NO SERVICES.
[2023-10-21] MEDS: ANCEF 10 IV (15:38)
--- NOTE | 2023-10-21 16:20 | W.IMMPOSTOP ---
Surgical Immed Post Op Note
-
Primary Surgeon: Peffer
Assisting Surgeon: none
Pre-op Diagnosis: L ureteral stone
Post-op Diagnosis: same
Procedure Performed: L Ureteroscopy, stone removal
Anesthesia Type: gen
Specimen / Cultures: stone
Estimated Blood Loss: 1cc
Complications: none
Operative Findings: stone removed, good ureteral jet. No stent placed
--- NOTE | 2023-10-21 16:27 | CM ---
Patient has been medically cleared for discharge to home with no additional skilled services. Patient has arranged for transport home.
--- NOTE | 2023-10-21 17:15 | PTCARENOTE ---
Pt received from the PACU via bed. Transport was w/o incident. Pt able to get up right away and ambulate to the Bathroom w/ a steady gait. Pt voided 400 mls of sl blood tinged urine. VSS, Pt is afebrile, Pt admits to mild bladder discomfort, and
denies nausea. Pt instructed on plan of care. Pt verbalized understanding of instructions. Call mena is within reach.
[2023-10-21] MEDS: NSS IV (17:26)
--- NOTE | 2023-10-21 21:03 | PTCARENOTE ---
Discharge instructions reviewed with patient, IV removed, questions and concerns addressed. D/c home with spouse and personal belongings
[2023-10-27 01:27] LABS: Stone Analysis Mass 30 mg
== END 2023-10-21 21:08 | disposition home or self-care (01) ==
LOC: 2 SOUTH 16:34
PROVIDERS: Physician Assistant; Urology; ADMITTING PHYSICIAN Surgery; EMERGENCY PHYSICIAN Emergency Medicine
DX: N20.1 Calculus of ureter (principal); R10.9 Unspecified abdominal pain; Z87.442 Personal history of urinary calculi
CPT/HCPCS: 52320; 74018; 76000; 80048; 80053; 81003; 81015; 82365; 85025; 96361; 96374; 96375; 99284; A4300; C1758; C1769; C1894; G0378